=== PATIENT | male | born 1955 | race Caucasian/White ===

== ENCOUNTER 2016-06-22 09:11 | Outpatient (CLI) | payer OTHER ==
[2016-06-22 09:32] VITALS: BP 144/80
--- NOTE | 2016-06-22 09:40 | NUR ---
PATIENT ARRIVED ON FLOOR FOR MONTHLY PHLEBOTOMY. VSS. 18 GAUGE IV STARTED IN LEFT FOREARM. 500ML OF WRBC'S REMOVED WITHOUT DIFFICULTY. PATIENT TOLERATED PROCEDURE WELL. ASYMPTOMATIC . DISCHARGED HOME INDEPENDENTLY. KB
== END 2016-06-22 10:00 | disposition home or self-care (01) ==
LOC: SDP SRH 09:11 → OB SRH 09:13 → SDP SRH 10:00
PROC: 059Y3ZZ Drainage of Upper Vein, Percutaneous Approach (ICD-10-PCS; principal; 2016-06-22)
DX: E83.119 Hemochromatosis, unspecified (principal)

== ENCOUNTER 2016-07-21 08:50 | Outpatient (CLI) | payer OTHER ==
[2016-07-21 09:28] VITALS: BP 143/81
--- NOTE | 2016-07-21 09:51 | NUR ---
PATIENT HERE FOR PHLEBOTOMY. VERY ANXIOUS, RAMBLING ABOUT CHEST PAIN FROM HIS NEIGHBORS. THEY WONT LET HIM SLEEP. SPEECH SCATTERED FROM SUBJECT TO SUBJECT. AFTER SITTING AND TALKING, HE APPEARED TO CALM DOWN. VSS. DENIES CHEST PAIN, SOB, BACK OR ARM PAIN. 5OO cc WRBC REMOVED WITHOUT DIFFICULTY. PATIENT TOLERATED PROCEDURE WELL. WAS GOING TO PCP FOR 9:40 APPT. WILL DISCUSS ANXIETY AND BACK PAIN. KB
== END 2016-07-21 10:30 | disposition home or self-care (01) ==
LOC: SDP SRH 08:50 → OB SRH 09:17 → SDP SRH 10:30
PROC: 059Y3ZZ Drainage of Upper Vein, Percutaneous Approach (ICD-10-PCS; principal; 2016-07-21)
DX: E83.119 Hemochromatosis, unspecified (principal)

== ENCOUNTER 2016-07-22 10:16 | Outpatient (CLI) | payer OTHER ==
--- NOTE | 2016-07-22 11:18 | DIAGNOSTIC IMAGING REPORT ---
PROCEDURE: XR LUMBAR SPINE 5 VIEWS INDICATION: LUMBAR DISC DISEASE WITH RADICULOPATHY TECHNIQUE: Five views. COMPARISON: None. FINDINGS: There is a compression fracture of L2 which represents 50% of the vertebral body height. 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 No evidence of spondylolysis or spondylolisthesis. IMPRESSION: 1. L2 compression deformity 2. L5-S1 facet arthritis.
== END 2016-07-22 23:00 ==
LOC: XR SRH 10:16
DX: S32.020A Wedge compression fracture of second lumbar vertebra, initial encounter for closed fracture (principal); M47.817 Spondylosis without myelopathy or radiculopathy, lumbosacral region

== ENCOUNTER 2016-08-24 09:32 | Outpatient (CLI) | payer OTHER ==
[2016-08-24 09:46] VITALS: BP 156/85
--- NOTE | 2016-08-24 10:12 | NUR ---
PATIENT HERE FOR HIS PHLEBOTOMY. VSS. AFEBRILE. 500CC WRBC REMOVED WITHOUT DIFFICULTY. PATIENT TOLERATED THE PROCEDURE WELL. SEEING PRIMARY CARE TODAY. ASYMPTOMATIC. DISCHARGED HOME INDEPENDENTLY. KB
== END 2016-08-24 11:00 | disposition home or self-care (01) ==
LOC: SDP SRH 09:32 → SCU SRH 09:34 → SDP SRH 11:00
PROC: 059Y3ZZ Drainage of Upper Vein, Percutaneous Approach (ICD-10-PCS; principal; 2016-08-24)
DX: E83.119 Hemochromatosis, unspecified (principal)
CPT/HCPCS: 29240

== ENCOUNTER 2016-09-20 09:17 | Outpatient (CLI) | payer OTHER ==
[2016-09-20 09:47] VITALS: BP 126/78
--- NOTE | 2016-09-20 09:59 | NUR ---
PATIENT HERE FOR MONTHLY PHLEBOTOMY. VSS. STATES HE IS HEALTHY TODAY EXCEPT FOR BACK PROBLEMS. 18 GUAGE IV STARTED IN LEFT FOREARM WITHOUT DIFFICULTY. 500ML WRBC REMOVED, PATIENT TOLEATED PROCEDURE WELL. INSTRUCTED PATIETN ON THE NEED TO FOLLOW UP WITH DR RATLIFF FOR CONTINUAL ORDERS. KB
== END 2016-09-20 10:30 | disposition home or self-care (01) ==
LOC: SDP SRH 09:17 → OB SRH 09:18 → SDP SRH 10:30
PROC: 059Y3ZZ Drainage of Upper Vein, Percutaneous Approach (ICD-10-PCS; principal; 2016-09-20)
DX: E83.119 Hemochromatosis, unspecified (principal)